=== PATIENT | female | born 1990 | race Caucasian/White ===

== ENCOUNTER 2017-08-20 18:17 | Emergency (ER) | payer BC, OTHER ==
[2017-08-20] MEDS ORDERED: ACETAMINOPHEN TAB 500 MG TAB PO STA (18:57)
--- NOTE | 2017-08-20 19:11 | XR ---
EXAMINATION TYPE: XR chest 2V DATE OF EXAM: 08/20/2017 COMPARISON: None HISTORY: 27-year-old female with cough and fever TECHNIQUE: PA and lateral views FINDINGS: The cardiomediastinal silhouette, aorta, and pulmonary vasculature are within normal limits. Lungs an d pleural spaces are clear. IMPRESSION: No acute cardiopulmonary process.
--- NOTE | 2017-08-20 19:17 | ED ---
URI HPI - General Chief Complaint: Upper Respiratory Infection Stated Complaint: aches, chills, etc Time Seen by Provider: 08/20/17 18:44 Source: patient, RN notes reviewed Mode of arrival: ambulatory Limitations: no limitations - History of Present Illness Initial Comments: 27-year-old female presented emergency Department chief complaint of cough congestion fever last 4 days. Patient states she's very achy hurts all over her muscles and joints. She denies any neck pain no neck stiffness. She states she had a mild sore throat which resolved denies ear pain. She has a slightly runny nose and a dry hacking cough. She has not taken any Tylenol or Motrin. Patient has benign past medical history - Related Data Home Medications Medication Instructions Recorded Confirmed Escitalopram [Lexapro] 20 mg PO DAILY 08/20/17 08/20/17 Allergies Allergy/AdvReac Type Severity Reaction Status Date / Time Penicillins AdvReac Rash/Hives Verified 08/20/17 19:29 Review of Systems ROS Statement: Those systems with pertinent positive or pertinent negative responses have been documented in the HPI. ROS Other: All systems not noted in ROS Statement are negative. Past Medical History Past Medical History: No Reported History Additional Past Medical History / Comment(s): migraines History of Any Multi-Drug Resistant Organisms: None Reported Past Surgical History: Section Past Psychological History: No Psychological Hx Reported Smoking Status: Former smoker Past Alcohol Use History: Occasional Past Drug Use History: None Reported General Exam Limitations: no limitations General appearance: alert, in no apparent distress Head exam: Present: atraumatic, normocephalic, normal inspection Eye exam: Present: normal appearance, PERRL, EOMI. Absent: scleral icterus, conjunctival injection, periorbital swelling ENT exam: Present: normal exam, normal oropharynx, mucous membranes moist, TM's normal bilaterally, normal external ear exam Neck exam: Present: normal inspection, full ROM. Absent: tenderness, meningismus, lymphadenopathy Respiratory exam: Present: normal lung sounds bilaterally. Absent: respiratory distress, wheezes, rales, rhonchi, stridor Cardiovascular Exam: Present: regular rate, normal rhythm, normal heart sounds. Absent: systolic murmur, diastolic murmur, rubs, gallop, clicks Neurological exam: Present: alert, oriented X3, CN II-XII intact Skin exam: Present: warm, dry, intact, normal color. Absent: rash Course Vital Signs 08/20/17 18:33 Temperature 101.1 F H Pulse Rate 98 Respiratory 16 Rate Blood Pressure 132/87 O2 Sat by Pulse 98 Oximetry Medical Decision Making - Medical Decision Making 27-year-old female presented for fever or chills body aches. Patient has influenza A. Patient's symptoms have been present for 4 days. Patient advised that Tamiflu would not improve her symptoms. She'll alternate Tylenol Motrin and return for any worsening symptoms. Chest x-ray reviewed no acute mildly. - Lab Data Lab Results 08/20/17 Range/Units 18:52 Influenza Type A RNA Detected H (Not Detectd) Influenza Type B (PCR) Not Detected (Not Detectd) Disposition Clinical Impression: Influenza Disposition: HOME SELF-CARE Condition: Stable Instructions: Influenza (ED) Additional Instructions: Please return to the Emergency Department if symptoms worsen or any other concerns. Referrals: Soham Henriquez III, MD [Primary Care Provider] - 1-2 days Time of Disposition: 19:36
[2017-08-20 19:46] VITALS: BP 130/86; PULSE 88; RESP 18; TEMP 97.2
== END 2017-08-20 20:03 | disposition home or self-care (01) ==
LOC: EC 18:17
DX: J11.1 Influenza due to unidentified influenza virus with other respiratory manifestations (principal); Z87.891 Personal history of nicotine dependence; Z79.899 Other long term (current) drug therapy; Z88.0 Allergy status to penicillin
CPT/HCPCS: 71020; 87502; 99283